=== PATIENT | female | born 1980 | race Caucasian/White ===

== ENCOUNTER → 2021-04-20 | Outpatient (RCR) | payer BC ==
[2021-04-10 15:30] VITALS: BP 109/73; PULSE 73; TEMP 98.3
--- NOTE | 2021-04-10 16:00 | NUR ---
Pt tolerated infusion with no s/s of medication reaction. INT DC'd at this time with catheter intact. She ambulates out from dept with steady gait.
[2021-04-13 13:11] VITALS: BP 101/68; PULSE 66; TEMP 98.2
--- NOTE | 2021-04-13 13:41 | NUR ---
INT DC'd with catheter intact. Pt ambulates out from dept with steady gait.
[2021-04-15 13:15] VITALS: BP 118/71; PULSE 73; TEMP 98.1
[~2021-04-20] VITALS: Ht 154.9 cm; Wt 91.0 kg
[~2021-04-20] MED LIST: B-12 250 MCG PO; FLONASEALLERGY NS; MASON NATURAL2000 IU PO; ONE-A-DAY ESSE1 EACH PO; ZYRTEC 10MG10 MG PO
[2021-04-20 14:29] VITALS: BP 117/67; PULSE 77; TEMP 98.5
== END ==
LOC: EUO → EDSTATUS 04-10 14:30 → EUO 04-10 14:30
DX: E61.1 Iron deficiency (principal)
CPT/HCPCS: J1756

== ENCOUNTER 2021-04-22 14:06 | Outpatient (RCR) | payer BC ==
[~2021-04-22] VITALS: Ht 154.9 cm; Wt 91.6 kg
[2021-04-22 14:26] VITALS: BP 106/77; PULSE 83; TEMP 83
== END 2021-04-22 15:07 ==
LOC: EUO 14:06
DX: Z79.899 Other long term (current) drug therapy (principal)
CPT/HCPCS: J1756

== ENCOUNTER → 2021-07-14 | Outpatient (CLI) | payer BC | LOC: COL.RAD 07:31 | DX: S33.6XXA Sprain of sacroiliac joint, initial encounter (principal); X58.XXXA Exposure to other specified factors, initial encounter | CPT/HCPCS: G0260; J3301 ==